=== PATIENT | female | born 1980 | race Caucasian/White ===

== ENCOUNTER → 2020-08-01 09:22 | Outpatient (CLI) | payer OTHER, SELFPAY ==
[2020-08-01 13:03] LABS: Ferritin 74 ng/mL (8-252)
== END ==
PROVIDERS: PCP Family Medicine; Referring Provider Physician Assistant Medical; Visit Provider Physician Assistant Medical
DX: L65.0 Telogen effluvium (principal); B07.8 Other viral warts; R20.8 Other disturbances of skin sensation; R23.8 Other skin changes
CPT/HCPCS: 36415; 82728